=== PATIENT | female | born 1945 | race Caucasian/White ===

== ENCOUNTER 2021-12-25 12:15 | Inpatient (IN) ==
[2021-12-25 12:45] LABS: ABS Eosinophils 0.1 10^3/ul (0-0.6); ABS Lymphocytes 0.7 10^3/ul (1.0-4.8); ABS Monocytes 0.5 10^3/ul (0-0.8); ABS Neutrophils 5.2 10^3/ul (1.5-7.7); Eosinophil % 2.3 %; Hematocrit 47 % (35-47); Hemoglobin 15.7 g/dL (12.0-16.0); Lymphocyte % 11.2 %; Mean Corpuscular HGB Conc 34 g/dL (31-36); Mean Corpuscular Hemoglobin 33 pg (27-31); Mean Corpuscular Volume 99 fL (80-97); Mean Platelet Volume 7.7 fL (7.4-10.4); Platelet Count 242 10^3/uL (150-450); Red Blood Count 4.74 10^6 /uL (3.70-4.87); Red Cell Distribution Width 15 % (10-15); White Blood Count 6.6 10^3/uL (3.5-10.8)
[2021-12-25 12:56] LABS: Activated Partial Thrombo Time 29.9 seconds (26.0-38.0); INR 0.92 (0.89-1.11)
[2021-12-25 13:07] LABS: ALT 11 U/L (7-52); Albumin 4.1 g/dL (3.2-5.2); Albumin/Globulin Ratio 1.6 (1-3); Alkaline Phosphatase 85 U/L (35-149); Blood Urea Nitrogen 15 mg/dL (6-24); CO2 Carbon Dioxide 25 mmol/L (22-32); Calcium 9.3 mg/dL (8.6-10.3); Chloride 103 mmol/L (101-111); Cholesterol 236 mg/dL; Globulin 2.6 g/dL (2-4); Glucose 130 mg/dL (70-100); HDL Cholesterol 81.4 mg/dL; LDL Cholesterol 132 mg/dL; Sodium 137 mmol/L (135-145); Total Protein 6.7 g/dL (6.4-8.9); Triglycerides 112 mg/dL; eGFR CKD-EPI 77.5 (>60)
[2021-12-25] MEDS ORDERED: Iohexol 350 (CONTRAST) 500 ML MDV IV ONE (13:14)
[2021-12-25 13:36] LABS: Anion Gap 9 mmol/L (2-11)
[2021-12-25 15:38] LABS: Folate 13.66 ng/mL (5.90-24.80)
[2021-12-25 15:54] LABS: Potassium Redraw 4.2 mmol/L (3.5-5.0)
[2021-12-25] MEDS ORDERED: Enoxaparin 40 MG/0.4 ML SYR SUBCUT SCH (17:00)
[2021-12-25 17:30] LABS: TSH Ultra Thyroid Stim Horm 2.52 mcIU/mL (0.34-5.60)
[2021-12-25] MEDS ORDERED: Thiamine 100 MG/ML 2 ml VIAL (200 mg) IM ONE (21:20)
[2021-12-25] MEDS: Multivitamins/Minerals TAB PO SCH (23:30)
[2021-12-26 06:59] LABS: ABS Eosinophils 0.2 10^3/ul (0-0.6); ABS Lymphocytes 0.9 10^3/ul (1.0-4.8); ABS Monocytes 0.6 10^3/ul (0-0.8); ABS Neutrophils 3.2 10^3/ul (1.5-7.7); Eosinophil % 4.8 %; Hematocrit 44 % (35-47); Hemoglobin 14.5 g/dL (12.0-16.0); Lymphocyte % 18.8 %; Mean Corpuscular HGB Conc 33 g/dL (31-36); Mean Corpuscular Hemoglobin 33 pg (27-31); Mean Corpuscular Volume 99 fL (80-97); Mean Platelet Volume 7.7 fL (7.4-10.4); Platelet Count 217 10^3/uL (150-450); Red Blood Count 4.38 10^6 /uL (3.70-4.87); Red Cell Distribution Width 14 % (10-15)
[2021-12-26 09:15] LABS: Calcium 8.9 mg/dL (8.6-10.3); Magnesium 1.8 mg/dL (1.9-2.7); Potassium 4.1 mmol/L (3.5-5.0)
[2021-12-26 09:28] LABS: Urine Appearance Cloudy; Urine Bilirubin Negative (Negative); Urine Blood Negative (Negative); Urine Color Yellow; Urine Glucose Negative (Negative); Urine Ketones Negative (Negative); Urine Nitrite Negative (Negative); Urine Protein Negative (Negative); Urine Specific Gravity 1.027 (1.002-1.030); Urine Urobilinogen Negative (Negative)
[2021-12-26] MEDS: Multivitamins/Minerals TAB PO SCH (10:33)
[2021-12-27 06:02] LABS: ABS Eosinophils 0.2 10^3/ul (0-0.6); ABS Monocytes 0.6 10^3/ul (0-0.8); Eosinophil % 4.8 %; Hematocrit 45 % (35-47); Lymphocyte % 19.8 %; Mean Corpuscular HGB Conc 33 g/dL (31-36); Mean Corpuscular Hemoglobin 33 pg (27-31); Mean Corpuscular Volume 99 fL (80-97); Mean Platelet Volume 7.8 fL (7.4-10.4); Nucleated Red Blood Cells % 0.1; Platelet Count 223 10^3/uL (150-450); Red Blood Count 4.53 10^6 /uL (3.70-4.87); Red Cell Distribution Width 15 % (10-15); White Blood Count 4.8 10^3/uL (3.5-10.8)
[2021-12-27 06:27] LABS: Calcium 8.9 mg/dL (8.6-10.3); Magnesium 1.8 mg/dL (1.9-2.7); Potassium 3.9 mmol/L (3.5-5.0); eGFR CKD-EPI 91.2 (>60)
[2021-12-27] MEDS ORDERED: Magnesium Sulfate 2 gm BAG 2 GM/50 ML BAG IVPB ONE (07:53)
[2021-12-27] MEDS: Multivitamins/Minerals TAB PO SCH (10:27)
[2021-12-27] MEDS ORDERED: COVID VACC, BIVAL PFIZER-TRIS 30 MCG/0.3 ML SYR IM ONE (15:00)
[2021-12-28 06:44] LABS: eGFR CKD-EPI 89.6 (>60)
[2021-12-28] MEDS: Multivitamins/Minerals TAB PO SCH (10:40)
[2021-12-29] MEDS: Multivitamins/Minerals TAB PO SCH (09:20)
[2021-12-30] MEDS: Multivitamins/Minerals TAB PO SCH (09:08)
[2021-12-31] MEDS: Multivitamins/Minerals TAB PO SCH (08:14)
[2022-01-01] MEDS: Multivitamins/Minerals TAB PO SCH (10:28)
[2022-01-02] MEDS: Multivitamins/Minerals TAB PO SCH (09:29)
[2022-01-02] MEDS ORDERED: COVID VACC, BIVAL PFIZER-TRIS 30 MCG/0.3 ML SYR IM ONE (18:25)
[2022-01-03] MEDS: Multivitamins/Minerals TAB PO SCH (08:00)
[2022-01-04] MEDS: Multivitamins/Minerals TAB PO SCH (08:46)
[2022-01-05] MEDS: Multivitamins/Minerals TAB PO SCH (09:21)
[2022-01-06] MEDS: Multivitamins/Minerals TAB PO SCH (08:37)
[2022-01-06 09:13] LABS: Rapid COVID-19 Molecular Undetected (Undetected)
[2022-01-06 11:21] VITALS: BP 122/68
== END 2022-01-06 13:45 | DRG 64 ==
LOC: ED 12:15 → EDHOLD 12:15 → MEDTELE 18:35 → SUATTDRO 12-28 12:30
PROVIDERS: ADMIT Internal Medicine; ATTEND Internal Medicine